=== PATIENT | male | born 1955 | race Caucasian/White ===

== ENCOUNTER 2021-11-15 10:08 | Inpatient (IN) | payer MEDICARE, OTHER ==
[~2021-11-15] VITALS: Ht 188 cm; Wt 87.2 kg
[2021-11-15] MEDS ORDERED: MORPHINE SULFATE 4 MG/ML SYR/VIAL IV ONE (11:45)
[2021-11-15] MEDS ORDERED: ONDANSETRON HCL 4 MG/2 ML VIAL IV ONE (11:45)
[2021-11-15 11:46] LABS: Urine Bacteria NONE SEEN /hpf (None Seen); Urine Blood Negative /uL (Negative); Urine Specific Gravity 1.016 (1.001-1.035); Urine WBC 1 /hpf (0 - 3)
[2021-11-15 12:05] LABS: Alcohol, Urine < 3.0 mg/dL (0-10); Amphetamine Screen, Urine NEGATIVE (NEGATIVE); Barbiturate Scree,Urine NEGATIVE (NEGATIVE); Benzodiazephine Screen, Urine NEGATIVE (NEGATIVE); Cannabinoid Screen, Urine POSITIVE (NEGATIVE); Cocaine Screen, Urine NEGATIVE (NEGATIVE); Phencyclidine Screen, Urine NEGATIVE (NEGATIVE)
[2021-11-15 12:14] LABS: Opiate Scree,Urine NEGATIVE (NEGATIVE)
[2021-11-15 12:43] LABS: Eosinophils # (auto) 0.1 10 ^3/uL (0-0.8); Eosinophils % (auto) 0.8 % (0.0-7.0); Lymphocytes # (auto) 1.1 10 ^3/uL (0.4-5.4); Monocytes # (auto) 0.5 10 ^3/uL (0-1.3); Neutrophils # (auto) 5.1 10 ^3/uL (1.6-8.6); Red Blood Cells 3.38 10^6/uL (4.5-5.90); White Blood Cell 6.8 10^3/uL (4.4-10.8)
[2021-11-15 12:46] LABS: Basophils # (auto) 0.1 10 ^3/uL (0-0.2); Hemoglobin 8.2 g/dL (13.5-17.5); Lymphocytes % (auto) 16.2 % (10.0-50.0); Mean Corpuscular Hemoglobin 24.2 pg (28.0-32.0); Mean Corpuscular Hgb Conc. 32.6 g/dL (32.0-36.0); Mean Corpuscular Volume 74.2 fL (80.0-100.0); Monocytes % (auto) 6.9 % (0.0-12.0); Neutrophils % (auto) 75.1 % (37.0-80.0); Nucleated Red Blood Cells % 0.2 %; Red Cell Distribution Width 18.2 % (11.8-14.3)
[2021-11-15 12:58] LABS: Potassium 3.6 mmol/L (3.5-5.1)
[2021-11-15 13:09] LABS: Albumin 2.7 g/dL (3.4-5.0); BUN/Creatinine Ratio 12.9; Bilirubin, Total 0.4 mg/dL (0.2-1.0); Calcium 8.9 mg/dL (8.5-10.1); Total Protein 6.8 g/dL (6.4-8.2)
[2021-11-15] MEDS ORDERED: DOCUSATE SOD 100 MG CAP PO PRN (18:00)
[2021-11-15] MEDS ORDERED: NITROGLYCERIN 0.4 MG SL TAB SL PRN (18:00)
[2021-11-15] MEDS ORDERED: ONDANSETRON HCL 4 MG/2 ML VIAL IV PRN (18:00)
[2021-11-15] MEDS ORDERED: MORPHINE SULFATE INJ 2 MG/ml SYRG IV PRN (18:00)
[2021-11-15] MEDS: HYDROcodone-ACET 5/325MG TAB PO PRN (21:18)
[2021-11-15] MEDS: SODIUM CHLORIDE 0.9% 1,000 ML IV SCH (22:04)
[2021-11-15] MEDS: SODIUM CHLOR 0.9% PF (SALINE LOCK) 10ML VIAL/SYR IV SCH (22:04)
[2021-11-16] MEDS: MORPHINE SULFATE INJ 2 MG/ml SYRG IV PRN ×3 (00:47→10:53)
[2021-11-16] MEDS: HYDROcodone-ACET 5/325MG TAB PO PRN ×2 (04:13→17:40)
[2021-11-16 05:00] VITALS: BP 125/58
[2021-11-16] MEDS: SODIUM CHLOR 0.9% PF (SALINE LOCK) 10ML VIAL/SYR IV SCH ×3 (06:12→23:03)
[2021-11-16] MEDS ORDERED: VALS40TA2 PO (07:06)
[2021-11-16] MEDS ORDERED: FLUT1AER3 IN (07:06)
[2021-11-16] MEDS ORDERED: ASPI1TAB20 PO (07:06)
[2021-11-16] MEDS ORDERED: ATO40T PO (07:06)
[2021-11-16] MEDS ORDERED: COEN400C8 OR (07:06)
[2021-11-16] MEDS ORDERED: DOXA4TAB6 PO (07:06)
[2021-11-16] MEDS ORDERED: [UNRECOGNIZED DRUG - CODE] OR (07:06)
[2021-11-16] MEDS ORDERED: GABA300C10 PO (07:06)
[2021-11-16] MEDS ORDERED: DIGO0.12 PO (07:06)
[2021-11-16] MEDS ORDERED: FOLI1TAB6 PO (07:06)
[2021-11-16] MEDS ORDERED: ALBU2TAB4 INH (07:06)
[2021-11-16] MEDS ORDERED: ROPI2TAB31 PO (07:06)
[2021-11-16] MEDS ORDERED: NITR0.4S29 SL (07:06)
[2021-11-16] MEDS ORDERED: TRAZ-181 PO (07:06)
[2021-11-16] MEDS ORDERED: OMEG306C OR (07:06)
[2021-11-16] MEDS ORDERED: AMLO-489 PO (07:06)
[2021-11-16] MEDS ORDERED: EVOL140I SC (07:06)
[2021-11-16] MEDS ORDERED: FURO40TA4 PO (07:06)
[2021-11-16] MEDS ORDERED: PANT1INJ3 IV (07:06)
[2021-11-16] MEDS ORDERED: CYAN-17 PO (07:06)
[2021-11-16] MEDS ORDERED: CARV25TA55 PO (07:06)
[2021-11-16 09:00] VITALS: BP 145/51
[2021-11-16] MEDS: SODIUM CHLORIDE 0.9% 1,000 ML IV SCH ×2 (10:53→17:27)
[2021-11-16] MEDS ORDERED: ALBUTEROL SULF 2.5 MG/0.5ML(0.5%) NEB SOLN NEB PRN (11:15)
[2021-11-16] MEDS ORDERED: PANTOPRAZOLE 40 MG/10 ML VIAL INJ IV ONE (11:15)
[2021-11-16] MEDS ORDERED: VALSARTAN 80 MG TAB PO ONE (11:15)
[2021-11-16 12:02] VITALS: BP 145/87
[2021-11-16 12:30] VITALS: BP 153/55
[2021-11-16] MEDS: GABAPENTIN 300 MG CAP PO SCH ×2 (14:07→23:03)
[2021-11-16] MEDS ORDERED: IOHEXOL 300 MG/ML 100ML BOTTLE IJ ONE (14:15)
[2021-11-16] MEDS: HYDROmorphone HCL 2 MG/ML VL/or syr IV PRN ×2 (15:08→19:55)
[2021-11-16 15:42] LABS: % Iron Saturation 17.7 % (20-55)
[2021-11-16 17:00] VITALS: BP 127/39
[2021-11-16 22:00] VITALS: BP 148/42
[2021-11-16] MEDS: CARVEDILOL 12.5 MG TAB PO SCH (23:04)
[2021-11-17] MEDS: HYDROmorphone HCL 2 MG/ML VL/or syr IV PRN ×6 (00:19→22:25)
[2021-11-17] MEDS: HYDROcodone-ACET 5/325MG TAB PO PRN ×3 (02:12→21:11)
[2021-11-17] MEDS: SODIUM CHLOR 0.9% PF (SALINE LOCK) 10ML VIAL/SYR IV SCH ×3 (05:32→22:25)
[2021-11-17] MEDS: GABAPENTIN 300 MG CAP PO SCH ×3 (05:33→21:11)
[2021-11-17] MEDS: SODIUM CHLORIDE 0.9% 1,000 ML IV SCH ×3 (05:42→23:30)
[2021-11-17 05:51] VITALS: BP 144/65
[2021-11-17 06:09] LABS: Mean Corpuscular Hemoglobin 24.4 pg (28.0-32.0)
[2021-11-17 06:11] LABS: Hematocrit 24.3 % (41.0-53.0); Hemoglobin 8.1 g/dL (13.5-17.5); Mean Corpuscular Hgb Conc. 33.2 g/dL (32.0-36.0); Mean Corpuscular Volume 73.5 fL (80.0-100.0); Red Cell Distribution Width 18.6 % (11.8-14.3); White Blood Cell 7.7 10^3/uL (4.4-10.8)
[2021-11-17 06:19] LABS: Basophils % (manual) 0 (0.0-2.0); Blast Cells 0; Eosinophils % (manual) 0 (0-7); Myelocytes % 0; Promyelocytes % 0; Reactive Lymphocytes 0
[2021-11-17 06:24] LABS: Potassium 3.8 mmol/L (3.5-5.1)
[2021-11-17 06:30] LABS: Calcium 8.6 mg/dL (8.5-10.1)
[2021-11-17 06:33] LABS: INR 1.06 (0.9-1.15); Partial Thromboplastin Time 25.2 sec (24.6-33.4)
[2021-11-17 08:00] VITALS: BP 174/63
[2021-11-17 08:36] LABS: Band Neutrophils % (manual) 6; Lymphocytes % (manual) 14 (10.0-50.0); Metamyelocytes % 1; Monocytes % (manual) 10 (0-12)
[2021-11-17 09:00] VITALS: BP 174/63
[2021-11-17] MEDS ORDERED: hydrALAZINE HCL 20 MG/ML VL IV ONE (09:15)
[2021-11-17] MEDS: PANTOPRAZOLE 40 MG/10 ML VIAL INJ IV SCH (09:57)
[2021-11-17] MEDS: FOLIC ACID 1 MG TAB PO SCH (09:57)
[2021-11-17] MEDS: CARVEDILOL 12.5 MG TAB PO SCH ×2 (09:57→21:13)
[2021-11-17] MEDS: VALSARTAN 80 MG TAB PO SCH (09:57)
[2021-11-17] MEDS ORDERED: ENOXAPARIN SOD 40 MG/0.4 ML SYRINGE SC ONE (12:30)
[2021-11-17 13:00] VITALS: BP 178/77
[2021-11-17] MEDS ORDERED: LORazepam 2MG/ML-1ML VIAL IM ONE (13:00)
[2021-11-17 17:00] VITALS: BP 160/68
[2021-11-17] MEDS: hydrALAZINE HCL 20 MG/ML VL IV PRN (17:57)
[2021-11-17 20:00] VITALS: BP 174/63
[2021-11-17] MEDS ORDERED: ZOLEDRONIC ACID 4 MG in SODIUM CHL 0.9% 100 ML IV ONE (23:15)
[2021-11-18] MEDS: HYDROmorphone HCL 2 MG/ML VL/or syr IV PRN ×9 (01:12→23:27)
[2021-11-18] MEDS: hydrALAZINE HCL 20 MG/ML VL IV PRN (01:13)
[2021-11-18 06:07] VITALS: BP 197/70
[2021-11-18] MEDS: SODIUM CHLOR 0.9% PF (SALINE LOCK) 10ML VIAL/SYR IV SCH ×3 (06:15→21:53)
[2021-11-18] MEDS: GABAPENTIN 300 MG CAP PO SCH ×3 (06:27→21:52)
[2021-11-18] MEDS: PANTOPRAZOLE 40 MG/10 ML VIAL INJ IV SCH (08:45)
[2021-11-18] MEDS: ENOXAPARIN SOD 40 MG/0.4 ML SYRINGE SC SCH (08:52)
[2021-11-18] MEDS: FOLIC ACID 1 MG TAB PO SCH (08:53)
[2021-11-18] MEDS: VALSARTAN 80 MG TAB PO SCH (08:53)
[2021-11-18] MEDS: CARVEDILOL 12.5 MG TAB PO SCH ×2 (08:53→21:51)
[2021-11-18 09:10] VITALS: BP 152/72
[2021-11-18] MEDS: SODIUM CHLORIDE 0.9% 1,000 ML IV SCH (09:30)
[2021-11-18] MEDS: HYDROcodone-ACET 5/325MG TAB PO PRN (11:34)
[2021-11-18 12:30] VITALS: BP 154/75
[2021-11-18] MEDS: SODIUM FERR GLUC 62.5MG/5ML 125 MG in SODIUM CHL 0.9% 100 ML IV SCH (14:35)
[2021-11-18] MEDS ORDERED: DOCUSATE SOD 100 MG CAP PO ONE (15:45)
[2021-11-18] MEDS ORDERED: LACTULOSE 20Gm/30ML SOLN PO ONE (15:45)
[2021-11-18] MEDS ORDERED: oxyCODONE ER 10 MG TAB PO ONE ×2 (15:45→16:15)
[2021-11-18 17:10] VITALS: BP 164/69
[2021-11-18] MEDS: oxyCODONE ER 10 MG TAB PO SCH (21:52)
[2021-11-18] MEDS: DOCUSATE SOD 100 MG CAP PO SCH (21:52)
[2021-11-18] MEDS: LACTULOSE 20Gm/30ML SOLN PO SCH (21:53)
[2021-11-19 00:13] VITALS: BP 152/80
[2021-11-19] MEDS: HYDROmorphone HCL 2 MG/ML VL/or syr IV PRN ×7 (01:37→16:43)
[2021-11-19] MEDS: GABAPENTIN 300 MG CAP PO SCH ×3 (05:56→21:58)
[2021-11-19] MEDS: SODIUM CHLOR 0.9% PF (SALINE LOCK) 10ML VIAL/SYR IV SCH ×3 (05:56→21:58)
[2021-11-19 06:17] VITALS: BP 157/63
[2021-11-19 08:30] VITALS: BP 155/76
[2021-11-19] MEDS: LACTULOSE 20Gm/30ML SOLN PO SCH ×2 (09:55→21:54)
[2021-11-19] MEDS: PANTOPRAZOLE 40 MG/10 ML VIAL INJ IV SCH (09:55)
[2021-11-19] MEDS: DOCUSATE SOD 100 MG CAP PO SCH ×2 (09:56→21:54)
[2021-11-19] MEDS: ENOXAPARIN SOD 40 MG/0.4 ML SYRINGE SC SCH (09:56)
[2021-11-19] MEDS: CARVEDILOL 12.5 MG TAB PO SCH ×2 (09:57→21:58)
[2021-11-19] MEDS: FOLIC ACID 1 MG TAB PO SCH (09:57)
[2021-11-19] MEDS: VALSARTAN 80 MG TAB PO SCH (09:57)
[2021-11-19] MEDS: oxyCODONE ER 10 MG TAB PO SCH ×2 (09:58→21:06)
[2021-11-19] MEDS: SODIUM FERR GLUC 62.5MG/5ML 125 MG in SODIUM CHL 0.9% 100 ML IV SCH (12:24)
[2021-11-19 12:30] VITALS: BP 132/84
[2021-11-19 13:00] VITALS: BP 157/85
[2021-11-19 22:00] VITALS: BP 159/70
[2021-11-19] MEDS ORDERED: oxyCODONE ER 10 MG TAB PO SCH (22:00)
[2021-11-19] MEDS ORDERED: TEMAZEPAM 15 MG CAP PO ONE (22:30)
[2021-11-20] MEDS ORDERED: HYDROcodone-ACET 7.5/325MG TAB PO PRN ×2 (01:00→10:45)
[2021-11-20] MEDS ORDERED: HYDROmorphone HCL 2 MG/ML VL/or syr IV ONE (05:00)
[2021-11-20] MEDS: SODIUM CHLOR 0.9% PF (SALINE LOCK) 10ML VIAL/SYR IV SCH ×3 (06:00→21:03)
[2021-11-20 06:20] LABS: Hematocrit 23.3 % (41.0-53.0); Hemoglobin 7.8 g/dL (13.5-17.5); White Blood Cell 6.6 10^3/uL (4.4-10.8)
[2021-11-20 06:23] LABS: Mean Corpuscular Hemoglobin 24.5 pg (28.0-32.0); Mean Corpuscular Hgb Conc. 33.3 g/dL (32.0-36.0); Mean Corpuscular Volume 73.6 fL (80.0-100.0); Red Blood Cells 3.17 10^6/uL (4.5-5.90); Red Cell Distribution Width 18.9 % (11.8-14.3)
[2021-11-20 06:34] LABS: BUN/Creatinine Ratio 11.1; Calcium 8.4 mg/dL (8.5-10.1); Potassium 3.6 mmol/L (3.5-5.1)
[2021-11-20] MEDS: GABAPENTIN 300 MG CAP PO SCH ×3 (06:40→21:04)
[2021-11-20 07:03] LABS: Basophils % (manual) 0 (0.0-2.0); Blast Cells 0; Eosinophils % (manual) 0 (0-7); Myelocytes % 0; Promyelocytes % 0; Reactive Lymphocytes 0
[2021-11-20] MEDS ORDERED: HYDROmorphone HCL 2 MG/ML VL/or syr IV PRN (08:15)
[2021-11-20 09:00] VITALS: BP 155/72
[2021-11-20 09:12] LABS: Band Neutrophils % (manual) 4; Lymphocytes % (manual) 12 (10.0-50.0); Metamyelocytes % 3; Monocytes % (manual) 8 (0-12)
[2021-11-20] MEDS: DOCUSATE SOD 100 MG CAP PO SCH ×2 (09:17→21:04)
[2021-11-20] MEDS: FOLIC ACID 1 MG TAB PO SCH (09:17)
[2021-11-20] MEDS: PANTOPRAZOLE 40 MG/10 ML VIAL INJ IV SCH (09:17)
[2021-11-20] MEDS: ENOXAPARIN SOD 40 MG/0.4 ML SYRINGE SC SCH (09:18)
[2021-11-20] MEDS: VALSARTAN 80 MG TAB PO SCH (09:18)
[2021-11-20] MEDS: CARVEDILOL 12.5 MG TAB PO SCH ×2 (09:19→21:05)
[2021-11-20] MEDS: LACTULOSE 20Gm/30ML SOLN PO SCH ×2 (09:19→21:03)
[2021-11-20] MEDS: oxyCODONE ER 10 MG TAB PO SCH (10:03)
[2021-11-20] MEDS ORDERED: MIDAZOLAM HCL 2MG/2ML 2ml VIAL (1mg/ml) IV ONE (10:15)
[2021-11-20] MEDS: HYDROmorphone HCL 2 MG/ML VL/or syr IV PRN ×2 (11:27→15:28)
[2021-11-20] MEDS: SODIUM FERR GLUC 62.5MG/5ML 125 MG in SODIUM CHL 0.9% 100 ML IV SCH (12:00)
[2021-11-20 12:26] LABS: Folate (Folic Acid) 9.45 ng/mL (5.38-24)
[2021-11-20] MEDS: MORPHINE SULF 30 mg ER tab PO SCH ×2 (14:17→21:04)
[2021-11-20 16:41] VITALS: BP 148/64
[2021-11-20] MEDS: HYDROcodone-ACET 10/325MG TAB PO PRN (18:59)
[2021-11-20 22:00] VITALS: BP 158/71
[2021-11-21] MEDS: HYDROcodone-ACET 10/325MG TAB PO PRN ×4 (02:54→20:34)
[2021-11-21] MEDS: TEMAZEPAM 15 MG CAP PO PRN ×2 (02:55→23:38)
[2021-11-21 05:00] VITALS: BP_SYST 133; BP_SYST 165; BP_DIAS 56; BP_DIAS 71
[2021-11-21] MEDS: GABAPENTIN 300 MG CAP PO SCH ×3 (05:39→21:26)
[2021-11-21] MEDS: SODIUM CHLOR 0.9% PF (SALINE LOCK) 10ML VIAL/SYR IV SCH ×3 (05:39→21:24)
[2021-11-21] MEDS: HYDROmorphone HCL 2 MG/ML VL/or syr IV PRN ×4 (05:54→18:39)
[2021-11-21 09:00] VITALS: BP 156/74
[2021-11-21] MEDS: PANTOPRAZOLE 40 MG/10 ML VIAL INJ IV SCH (09:54)
[2021-11-21] MEDS: LACTULOSE 20Gm/30ML SOLN PO SCH ×2 (09:54→21:24)
[2021-11-21] MEDS: CARVEDILOL 12.5 MG TAB PO SCH ×2 (09:55→21:26)
[2021-11-21] MEDS: MORPHINE SULF 30 mg ER tab PO SCH ×2 (09:55→21:46)
[2021-11-21] MEDS: FOLIC ACID 1 MG TAB PO SCH (09:55)
[2021-11-21] MEDS: DOCUSATE SOD 100 MG CAP PO SCH ×2 (09:55→21:24)
[2021-11-21] MEDS: VALSARTAN 80 MG TAB PO SCH (09:55)
[2021-11-21] MEDS: ENOXAPARIN SOD 40 MG/0.4 ML SYRINGE SC SCH (09:56)
[2021-11-21 13:00] VITALS: BP 154/71
[2021-11-21] MEDS: SODIUM FERR GLUC 62.5MG/5ML 125 MG in SODIUM CHL 0.9% 100 ML IV SCH (13:00)
[2021-11-21 17:05] VITALS: BP 163/78
[2021-11-21] MEDS ORDERED: ONDANSETRON HCL 4 MG/2 ML VIAL IV PRN (17:45)
[2021-11-21 22:00] VITALS: BP 143/68
[2021-11-22] MEDS: HYDROmorphone HCL 2 MG/ML VL/or syr IV PRN ×5 (03:05→19:43)
[2021-11-22 05:00] VITALS: BP 142/57
[2021-11-22] MEDS: HYDROcodone-ACET 10/325MG TAB PO PRN ×4 (05:30→22:56)
[2021-11-22] MEDS: SODIUM CHLOR 0.9% PF (SALINE LOCK) 10ML VIAL/SYR IV SCH ×3 (05:31→21:08)
[2021-11-22] MEDS: GABAPENTIN 300 MG CAP PO SCH ×3 (05:31→21:08)
[2021-11-22 08:00] VITALS: BP 156/75
[2021-11-22] MEDS: LACTULOSE 20Gm/30ML SOLN PO SCH ×3 (10:00→21:07)
[2021-11-22] MEDS: FOLIC ACID 1 MG TAB PO SCH (10:29)
[2021-11-22] MEDS: DOCUSATE SOD 100 MG CAP PO SCH ×2 (10:29→21:07)
[2021-11-22] MEDS ORDERED: DexAMETHasone SOD PHOS 4 MG/1ML SDV INJ IV ONE (10:30)
[2021-11-22] MEDS: CARVEDILOL 12.5 MG TAB PO SCH ×2 (10:30→21:08)
[2021-11-22] MEDS: MORPHINE SULF 30 mg ER tab PO SCH ×2 (10:38→21:08)
[2021-11-22] MEDS: VALSARTAN 80 MG TAB PO SCH (10:40)
[2021-11-22 12:00] VITALS: BP 151/70
[2021-11-22 16:00] VITALS: BP 169/76
[2021-11-22] MEDS: hydrALAZINE HCL 20 MG/ML VL IV PRN (17:38)
[2021-11-22] MEDS ORDERED: RIVAROXABAN 20 MG TAB PO SCH (18:00)
[2021-11-22] MEDS: DexAMETHasone SOD PHOS 4 MG/1ML SDV INJ IV SCH (21:08)
[2021-11-22 22:00] VITALS: BP 115/76
[2021-11-22] MEDS: TEMAZEPAM 15 MG CAP PO PRN (22:56)
[2021-11-23] MEDS: HYDROcodone-ACET 10/325MG TAB PO PRN ×3 (03:01→09:16)
[2021-11-23 05:00] VITALS: BP 152/75
[2021-11-23] MEDS: HYDROmorphone HCL 2 MG/ML VL/or syr IV PRN ×3 (05:00→11:28)
[2021-11-23] MEDS: GABAPENTIN 300 MG CAP PO SCH (06:05)
[2021-11-23] MEDS: SODIUM CHLOR 0.9% PF (SALINE LOCK) 10ML VIAL/SYR IV SCH (06:05)
[2021-11-23 09:00] VITALS: BP_SYST 146; BP_SYST 153; BP_DIAS 73; BP_DIAS 92
[2021-11-23] MEDS: DOCUSATE SOD 100 MG CAP PO SCH (10:06)
[2021-11-23] MEDS: FOLIC ACID 1 MG TAB PO SCH (10:06)
[2021-11-23] MEDS: MORPHINE SULF 30 mg ER tab PO SCH (10:07)
[2021-11-23] MEDS: DexAMETHasone SOD PHOS 4 MG/1ML SDV INJ IV SCH (10:07)
[2021-11-23] MEDS: LACTULOSE 20Gm/30ML SOLN PO SCH (10:07)
[2021-11-23] MEDS: CARVEDILOL 12.5 MG TAB PO SCH (10:08)
[2021-11-23] MEDS: VALSARTAN 80 MG TAB PO SCH (10:14)
[2021-11-23 10:34] VITALS: BP 153/73
[2021-11-23 11:28] VITALS: BP 160/77
== END 2021-11-23 12:15 | disposition hospice, home (50) | DRG 543 ==
LOC: ER 10:12 → TELE 18:00 → TELE-CENTR 22:30
PROVIDERS: ADMIT Nurse Practitioner Family; ATTEND Internal Medicine
DX: C79.51 Secondary malignant neoplasm of bone (principal); C79.02 Secondary malignant neoplasm of left kidney and renal pelvis; E44.0 Moderate protein-calorie malnutrition; I50.42 Chronic combined systolic (congestive) and diastolic (congestive) heart failure; I82.622 Acute embolism and thrombosis of deep veins of left upper extremity; C61 Malignant neoplasm of prostate; E78.5 Hyperlipidemia, unspecified; I11.0 Hypertensive heart disease with heart failure; R33.9 Retention of urine, unspecified; Z20.822 Contact with and (suspected) exposure to COVID-19; I25.10 Atherosclerotic heart disease of native coronary artery without angina pectoris; D64.9 Anemia, unspecified; N28.89 Other specified disorders of kidney and ureter; M79.89 Other specified soft tissue disorders; J44.9 Chronic obstructive pulmonary disease, unspecified; Z91.81 History of falling; K59.00 Constipation, unspecified; Z68.24 Body mass index [BMI] 24.0-24.9, adult; Z51.5 Encounter for palliative care; Z79.899 Other long term (current) drug therapy; Z80.0 Family history of malignant neoplasm of digestive organs; Z85.038 Personal history of other malignant neoplasm of large intestine; Z85.46 Personal history of malignant neoplasm of prostate; Z86.718 Personal history of other venous thrombosis and embolism; Z87.891 Personal history of nicotine dependence; Z90.49 Acquired absence of other specified parts of digestive tract; Z95.0 Presence of cardiac pacemaker; Z95.1 Presence of aortocoronary bypass graft
CPT/HCPCS: 36415; 71260; 72131; 72170; 73501; 73701; 74176; 74177; 76775; 78306; 80048; 80053; 80162; 80307; 81001; 82150; 82378; 82607; 82668; 82746; 83540; 83550; 83615; 83690; 83883; 84154; 84155; 84165; 84439; 84443; 85007; 85025; 85027; 85610; 85730; 86301; 93005; 93306; 93971; 96361; 96374; 96375; C9113; G0378; J1100; J2405; J3489